=== PATIENT | male | born 1940 | race Caucasian/White ===

== ENCOUNTER → 2019-03-18 | Day surgery (SDC) | payer OTHER ==
[~2019-03-18] VITALS: Ht 182.9 cm; Wt 90.7 kg
[~2019-03-18] MED LIST: BUPIVACAINE HCL 0.5% INJ 30 ML VIAL INJ ONE; CEFAZOLIN SOD 1 GM/NS 50ML 50 ML IV ONE; FENTANYL CITRATE/PF 100MCG/2 ML INJ ONE; HYDROMORPHONE 1MG/1ML INJ IV STA; HYDROMORPHONE 2MG/ML 2 MG/ML ML IV ONE; LIDOCAINE HCL 1% LOCAL INJ 20 ML VIAL ONE; MIDAZOLAM HCL 2 MG/2 ML VIAL ONE; MUPIROCIN 2% OINT 22 GM TUBE ONE; ONDANSETRON HCL INJ 2MG/ML 2ML 2 MG/ML VIAL IV STA; TETANUS/DIPHTHERIA TOX ADULT 0.5 ML SYR IM ONE
--- OUTSIDE RECORDS SUMMARY | 2019-03-18 10:19 | XMS REPORT | Continuity of Care Document ---
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/2018 2.16.840.1.090158.4.391.11.37926 History of colonic polyps Active Problem 10/09/2018 2.16.840.1.308957.4.391.11.23132 Carpal tunnel syndrome of right wrist Active Problem 10/09/2018 2.16.840.1.945068.4.391.11.84201 Benign essential hypertension Active Problem 10/09/2018 2.16.840.1.309329.4.391.11.69510 Other and unspecified hyperlipidemia Active Problem 10/09/2018 2.16.840.1.274933.4.391.11.66786 Encounter for general adult medical examination with abnormal findings Active Diagnosis 10/09/2018 2.16.840.1.088730.4.391.11.64017 Primary osteoarthritis of left knee Active Problem 10/09/2018 2.16.840.1.376645.4.391.11.79002 Encounter for immunization Active Diagnosis 06/26/2018 2.16.840.1.835269.4.391.11.20106 Abrasion, left lower leg, initial encounter Active Diagnosis 06/26/2018 2.16.840.1.886187.4.391.11.53972 Obesity Active Problem 10/09/2018 2.16.840.1.958841.4.391.11.91529 Pure hypercholesterolemia Active Problem 11/22/2015 2.16.840.1.759870.4.391.11.27603 Encounter for screening Active Diagnosis 10/09/2018 2.16.840.1.994885.4.391.11.13339 BMI 27.0-27.9,adult Active Diagnosis 11/15/2015 2.16.840.1.191145.4.391.11.12395 Benign positional vertigo Active Diagnosis 11/15/2015 2.16.840.1.322508.4.391.11.72874 Actinic keratosis Active Diagnosis 07/31/2016 2.16.840.1.432484.4.391.11.58375 Medications Medication Details Route Status Patient Instructions Ordering Provider Order Date Source Shingrix as directed Intramuscular Active 50 MCG Intramuscular as directed Compa 10/02/2018 2.16.840.1.341511.4.391.11.78717 Prevnar 13 as directed Intramuscular Active - Intramuscular as directed Compa 10/02/2018 2.16.840.1.419973.4.391..27047 Prevnar 13 as directed Intramuscular Active - Intramuscular as directed Compa 09/25/2018 2.16.840.1.810746.4.391..61314 Shingrix as directed Intramuscular Active 50 MCG Intramuscular as directed Compa 09/25/2018 2.16.840.1.199918.4.391..57894 Diphtheria-Tetanus Toxoids as directed Intramuscular Active 2- 5 LFU Intramuscular once Compa 06/26/2018 2.16.840.1.405402.4.391..56287 Keflex 1 capsule Orally Active 500 mg Orally every 12 hrs Compa 05/26/2018 2.16.840.1.547412.4.391.11.26397 Pravastatin Sodium 1 tablet Orally Active 20 mg Orally Once a day Compa 11/28/2017 2.16.840.1.495297.4.391..32670 Zostavax as directed Subcutaneous Active 58261 UNT/0.65ML Subcutaneous as directed Compa 07/26/2017 2.16.840.1.750597.4.391..26891 Zocor 1 tablet in the evening Orally Active 20 mg Orally Once a day Compa 11/21/2015 2.16.840.1.496039.4.391.11.42850 Zocor 1 tablet in the evening Orally Active 20 mg Orally Once a day Compa 11/21/2015 2.16.840.1.787272.4.391.11.86789 Meclizine HCl 1 tablet as needed Orally Active 25 MG Orally twice a day (bid) as needed (prn) Compa 11/11/2015 2.16.840.1.883388.4.391.11.28263 Lisinopril-Hydrochlorothiazide 1 tablet by mouth Active 20-25MG by mouth once a day Compa 2.16.840.1.737926.4.391.11.14828 Aspirin 1 tablet Orally Active 81 MG Orally ONE EVERY OTHER DAY Compa 2.16.840.1.021807.4.391.11.53563 Aspirin 1 tablet Orally Active 81 MG Orally ONE EVERY OTHER DAY Compa 2.16840.1.234250.4.391.11.15865 Pravastatin Sodium 1 tablet Orally Active 20MG Orally Once a day Compa 2.16.840.1.031348.4.391.11.84710 Lisinopril-Hydrochlorothiazide 1 tablet by mouth Active 20-25MG by mouth twice a day (bid) Compa 2.16840.1.987268.4.391.11.38526 Lisinopril-Hydrochlorothiazide 1 tablet by mouth Active 20-25MG by mouth twice a day (bid) Compa 2.16840.1.152806.4.391.11. Aspirin 1 tablet Orally Active 81 MG Orally EVERY OTHER DAY Compa 2.16840.1.053723.4.391.11.08262 Allergies, Adverse Reactions, Alerts Substance Category Reaction Severity Reaction type Status Date Reported Comments Source statins Adverse Reaction muscle pain Adverse Reaction Active 07/25/2016 2.16.840.1.881935.4.391.11.16543 Lipitor Adverse Reaction muscle pain Adverse Reaction Active 09/25/2018 2.16.840.1.992666.4.391.11.10403 Immunizations Immunization Date Given Site Status Last Updated Comments Source Tdap 05/26/2018 completed 2.16.840.1.440827.4.391.11.44170 MCR INFLUENZA VACCINE 07/26/2017 completed 2.16.840.1.680879.4.391.11.80246 FLU VACCINE NO PRESERV 3 & > 07/25/2016 completed 2.16.840.1.500419.4.391.11.81021 Pneumococcal Vaccine Polyvalent 07/25/2016 completed 2.16.840.1.488990.4.391.11.41086 Results No Data Provided for This Section Pathology Reports No Data Provided for This Section Diagnostic Reports No Data Provided for This Section Consultation Notes No Data Provided for This Section Discharge Summaries No Data Provided for This Section History and Physicals No Data Provided for This Section Vital Signs Vital Sign Value Date Comments Source Weight 219.0 09/25/2018 2.16.840.1.645958.4.391.11.53432 Height 71.4 09/25/2018 2.16.840.1.789573.4.391.11.25086 Temperature Oral (F) 96.0 F 09/25/2018 2.16.840.1.964430.4.391.11.39564 Heart Rate 54 09/25/2018 2.16.840.1.306403.4.391.11.68642 Diastolic (mm Hg) 65 09/25/2018 2.16.840.1.419174.4.391.11.48141 Systolic (mm Hg) 140 09/25/2018 2.16.840.1.716136.4.391.11.76924 Weight 222.4 05/26/2018 2.16.840.1.398035.4.391.11.70050 Height 71.4 05/26/2018 2.16.840.1.098505.4.391.11.56707 Temperature Oral (F) 96.7 F 05/26/2018 2.16.840.1.404734.4.391.11.59325 Heart Rate 53 05/26/2018 2.16.840.1.824447.4.391.11.84852 Diastolic (mm Hg) 68 05/26/2018 2.16.840.1.213890.4.391.11.81663 Systolic (mm Hg) 149 05/26/2018 2.16.840.1.720271.4.391.11.71119 Weight 221.4 11/21/2017 2.16.840.1.517594.4.391.11.71235 Height 71.4 11/21/2017 2.16.840.1.743441.4.391.11.65024 Temperature Oral (F) 97.6 F 11/21/2017 2.16.840.1.212866.4.391.11.15291 Heart Rate 57 11/21/2017 2.16.840.1.192163.4.391.11.87736 Diastolic (mm Hg) 68 11/21/2017 2.16.840.1.798384.4.391.11.62532 Systolic (mm Hg) 141 11/21/2017 2.16.840.1.906448.4.391.11.38885 Weight 217.6 07/26/2017 2.16.840.1.244249.4.391.11.33989 Height 71.4 07/26/2017 2.16.840.1.975076.4.391.11.39704 Temperature Oral (F) 98.7 F 07/26/2017 2.16.840.1.881027.4.391.11.03098 Heart Rate 57 07/26/2017 2.16.840.1.793014.4.391.11.21491 Diastolic (mm Hg) 69 07/26/2017 2.16.840.1.407999.4.391.11.59603 Systolic (mm Hg) 136 07/26/2017 2.16.840.1.770910.4.391.11.36794 Weight 217 03/25/2017 2.16.840.1.250001.4.391.11.76135 Height 71.4 03/25/2017 2.16.840.1.889044.4.391.11.68096 Temperature Oral (F) 98.9 F 03/25/2017 2.16.840.1.446286.4.391.11.40419 Heart Rate 67 03/25/2017 2.16.840.1.782229.4.391.11.08117 Diastolic (mm Hg) 69 03/25/2017 2.16.840.1.510518.4.391.11.82782 Systolic (mm Hg) 147 03/25/2017 2.16.840.1.281261.4.391.11.18185 Weight 214.6 11/22/2016 2.16.840.1.353259.4.391.11.60174 Height 71.4 11/22/2016 2.16.840.1.737936.4.391.11.72439 Temperature Oral (F) 98.3 F 11/22/2016 2.16.840.1.672666.4.391.11.65568 Heart Rate 60 11/22/2016 2.16.840.1.764836.4.391.11.27390 Diastolic (mm Hg) 72 11/22/2016 2.16.840.1.027435.4.391.11.25325 Systolic (mm Hg) 140 11/22/2016 2.16.840.1.704534.4.391.11.25522 Weight 211.0 07/25/2016 2.16.840.1.063622.4.391.11.80270 Height 71.4 07/25/2016 2.16.840.1.877392.4.391.11.50088 Temperature Oral (F) 98.3 F 07/25/2016 2.16.840.1.037178.4.391.11.12842 Heart Rate 58 07/25/2016 2.16.840.1.820946.4.391.11.44860 Diastolic (mm Hg) 80 07/25/2016 2.16.840.1.190172.4.391.11.54698 Systolic (mm Hg) 161 07/25/2016 2.16.840.1.847483.4.391.11.66773 Weight 200 11/11/2015 2.16.840.1.988745.4.391.11.58780 Height 71.4 11/11/2015 2.16.840.1.788259.4.391.11.87690 Temperature Oral (F) 98.6 F 11/11/2015 2.16.840.1.486382.4.391.11.72467 Heart Rate 60 11/11/2015 2.16.840.1.757523.4.391.11.81342 Diastolic (mm Hg) 69 11/11/2015 2.16.840.1.107962.4.391.11.25590 Systolic (mm Hg) 143 11/11/2015 2.16.840.1.751059.4.391.11.42296 Encounters Location Location Details Encounter Type Encounter Number Reason For Visit Attending Provider ADM Date DC Date Status Source [facility] annual physical/vertiog [id number] 11/11/2015 11/11/2015 2.16.840.1.341420.4.391.11.62378 [facility] annual physical/vertiog [id number] 11/11/2015 11/11/2015 2.16.840.1.565400.4.391.11.60583 [facility] annual physical/vertiog [id number] 11/11/2015 11/11/2015 2.16.840.1.263300.4.391.11.28360 [facility] Unknown [id number] 11/21/2015 11/21/2015 2.16.840.1.000162.4.391.11.29797 [facility] Unknown [id number] 11/21/2015 11/21/2015 2.16.840.1.625047.4.391.11.19759 [facility] REFERRAL TO DERMATOLOGY [id number] 07/25/2016 07/25/2016.16.840.1.089068.4.391.11.06975 Procedures No Data Provided for This Section Assessment and Plan No Data Provided for This Section Plan of Care No Data Provided for This Section Social History Social History Date Source Social History ElementQualifiersDate Reported Do you take Aspirin, or a blood thinner . Yes I do take aspirin/ or a blood thinner Jul 25, 2016 Tobacco Use: . Are you a: former smoker, What year did you quit? 1980 Jul 25, 2016 Use of recreational / street drugs? . Answer: No Jul 25, 2016 Marital Status: . Jul 25, 2016 Caffeine intake? . Status: Yes, What type: Coffee, 1 - 2 cup(s) a day Jul 25, 2016 Do you exercise? . Answer: Yes Jul 25, 2016 Do you drink alcohol? . Status: Yes, Type: Wine, How Often? Socially, Quantity: 1 Jul 25, 2016 Travel outside [place]: . no Jul 25, 2016 Occupation: . RETIRED. Jul 25, 2016 07/25/2016 2.16.840.1.801028.4.391.11.17161 Family History No Data Provided for This Section Advance Directives No Data Provided for This Section Functional Status No Data Provided for This Section
--- OUTSIDE RECORDS SUMMARY | 2019-03-18 10:20 | XMS REPORT ---
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 Assessment History of colonic polyps Z86.010 Active Assessment Other and unspecified hyperlipidemia E78.5 Active Assessment Carpal tunnel syndrome of right wrist G56.01 Active Problem Carpal tunnel syndrome of right wrist G56.01 Active Problem Benign essential hypertension I10 Active Problem Other and unspecified hyperlipidemia E78.5 Active Problem Personal history of tobacco use, presenting hazards to health Z87.891 Active Assessment Benign essential hypertension I10 Active Problem 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 Problem History of colonic polyps Z86.010 Active Medications Medication Code System Code Instructions Start Date End Date Status Dosage Aspirin [facility] [address]-24 81 MG Orally ONE EVERY OTHER DAY Active 1 tablet Lisinopril-Hydrochlorothiazide [facility] 22406355508 20-25MG by mouth twice a day (bid) Active 1 tablet Zocor [facility] [address]-56 20 mg Orally Once a day November 21, 2015 Active 1 tablet in the evening Vital Signs Date/Time: March 25, 2017 BMI 29.92 Index Weight 217 lbs Height 71.4 in Temperature 98.9 F Cardiac Monitoring Heart Rate 67 /min Blood Pressure Diastolic 69 mm Hg Blood Pressure Systolic 147 mm Hg Results No Known Results Summary Purpose [employer] Submission
--- OUTSIDE RECORDS SUMMARY | 2019-03-18 10:20 | XMS REPORT ---
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 Assessment Encounter for general adult medical examination with abnormal findings Z00.01 Active Assessment Benign essential hypertension I10 Active Problem Other and unspecified hyperlipidemia E78.5 Active Problem Carpal tunnel syndrome of right wrist G56.01 Active Problem Primary osteoarthritis of left knee M17.12 Active Problem History of colonic polyps Z86.010 Active Problem Personal history of tobacco use, presenting hazards to health Z87.891 Active Problem Benign essential hypertension I10 Active Problem 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 Assessment Other and unspecified hyperlipidemia E78.5 Active Assessment Carpal tunnel syndrome of right wrist G56.01 Active Assessment Personal history of tobacco use, presenting hazards to health Z87.891 Active Assessment Primary osteoarthritis of left knee M17.12 Active Assessment History of colonic polyps Z86.010 Active Medications Medication Code System Code Instructions Start Date End Date Status Dosage Zocor [facility] 16281259731 20 mg Orally Once a day November 21, 2015 Active 1 tablet in the evening Aspirin [facility] 87054296551 81 MG Orally ONE EVERY OTHER DAY Active 1 tablet Lisinopril-Hydrochlorothiazide [facility] 72647816555 20-25MG by mouth twice a day (bid) Active 1 tablet Vital Signs Date/Time: November 21, 2017 BMI 30.53 Index Weight 221.4 lbs Height 71.4 in Temperature 97.6 F Cardiac Monitoring Heart Rate 57 /min Blood Pressure Diastolic 68 mm Hg Blood Pressure Systolic 141 mm Hg Results Name Result Date Reference Range Unit Abnormality Flag VITAMIN D, 25-HYDROXY, LC/MS/MS ----VITAMIN D,25-OH,TOTAL,IA 38 20171121 30-100 ng/mL N COMPREHENSIVE METABOLIC PANEL ----GLOBULIN 2.2 57877654 1.9-3.7 g/dL (calc) N ----eGFR 100 20171121 > OR=60 mL/min/1.73m2 N ----eGFR NON-AFR. UZBEK 87 20171121 > OR=60 mL/min/1.73m2 N ----ALBUMIN 4.6 32109614 3.6-5.1 g/dL N ----SODIUM 140 76202951 135-146 mmol/L N ----PROTEIN, TOTAL 6.8 43711687 6.1-8.1 g/dL N ----BUN/CREATININE RATIO NOT APPLICABLE 20171121 6-22 (calc) ----CALCIUM 9.5 21424979 8.6-10.3 mg/dL N ----AST 13 20171121 10-35 U/L N ----GLUCOSE 115 20171121 65-99 mg/dL H ----ALKALINE PHOSPHATASE 48 20171121 40-115 U/L N ----BILIRUBIN, TOTAL 0.6 20171121 0.2-1.2 mg/dL N ----CREATININE 0.79 60037162 0.70-1.18 mg/dL N ----ALBUMIN/GLOBULIN RATIO 2.1 06430136 1.0-2.5 (calc) N ----UREA NITROGEN (BUN) 14 20171121 7-25 mg/dL N ----CARBON DIOXIDE 28 20171121 20-31 mmol/L N ----ALT 11 05486666 9-46 U/L N ----POTASSIUM 4.5 98845732 3.5-5.3 mmol/L N ----CHLORIDE 104 53770401 98-110 mmol/L N LIPID PANEL ----NON HDL CHOLESTEROL 183 83034568 <130 mg/dL (calc) H ----CHOL/HDLC RATIO 4.2 81034392 <5.0 (calc) N ----CHOLESTEROL, TOTAL 240 81807840 <200 mg/dL H ----HDL CHOLESTEROL 57 46542418 >40 mg/dL N ----TRIGLYCERIDES 87 03665278 <150 mg/dL N ----LDL-CHOLESTEROL 164 23101883 mg/dL (calc) H HEMOGLOBIN A1c ----HEMOGLOBIN A1c 5.5 32616766 <5.7 % of total Hgb N CBC (INCLUDES DIFF/PLT) ----MCH 30.2 57104475 27.0-33.0 pg N ----MCV 89.4 78984318 80.0-100.0 fL N ----BASOPHILS 0.8 24977710 % N ----HEMATOCRIT 44.7 65869466 38.5-50.0 % N ----HEMOGLOBIN 15.1 45657867 13.2-17.1 g/dL N ----PLATELET COUNT 193 28591292 140-400 Thousand/uL N ----RDW 12.1 79026269 11.0-15.0 % N ----MCHC 33.8 65729846 32.0-36.0 g/dL N ----ABSOLUTE LYMPHOCYTES 1232 55044215 850-3900 cells/uL N ----ABSOLUTE MONOCYTES 629 38601249 200-950 cells/uL N ----ABSOLUTE EOSINOPHILS 109 67028332 15-500 cells/uL N ----ABSOLUTE BASOPHILS 42 82547591 0-200 cells/uL N ----RED BLOOD CELL COUNT 5.00 00291355 4.20-5.80 Million/uL N ----WHITE BLOOD CELL COUNT 5.2 91697615 3.8-10.8 Thousand/uL N ----MPV 10.5 09150055 7.5-12.5 fL N ----ABSOLUTE NEUTROPHILS 3188 94912580 1677-5438 cells/uL N ----MONOCYTES 12.1 34404765 % N ----EOSINOPHILS 2.1 40549582 % N ----NEUTROPHILS 61.3 49523564 % N ----LYMPHOCYTES 23.7 90943855 % N VITAMIN B12/FOLATE, SERUM PANEL ----VITAMIN B12 315 87911715 200-1100 pg/mL N ----FOLATE, SERUM 18.6 20075917 ng/mL N PSA, TOTAL ----PSA, TOTAL 0.6 17249487 < OR=4.0 ng/mL N TSH ----TSH 0.86 24615754 0.40-4.50 mIU/L N Summary Purpose [employer] Submission
--- OUTSIDE RECORDS SUMMARY | 2019-03-18 10:20 | XMS REPORT ---
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 Assessment History of colonic polyps Z86.010 Active Problem Carpal tunnel syndrome of right wrist G56.01 Active Problem Benign essential hypertension I10 Active Problem Other and unspecified hyperlipidemia E78.5 Active Problem Personal history of tobacco use, presenting hazards to health Z87.891 Active Assessment Benign essential hypertension I10 Active Problem 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 Problem History of colonic polyps Z86.010 Active Assessment Encounter for general adult medical examination with abnormal findings Z00.01 Active Assessment Other and unspecified hyperlipidemia E78.5 Active Assessment Carpal tunnel syndrome of right wrist G56.01 Active Medications Medication Code System Code Instructions Start Date End Date Status Dosage Zocor [facility] [address]-87 20 mg Orally Once a day November 21, 2015 Active 1 tablet in the evening Lisinopril-Hydrochlorothiazide [facility] [address]-57 20-25MG by mouth once a day Active 1 tablet Aspirin [facility] [address]-77 81 MG Orally ONE EVERY OTHER DAY Active 1 tablet Vital Signs Date/Time: November 22, 2016 BMI 29.59 Index Weight 214.6 lbs Height 71.4 in Temperature 98.3 F Cardiac Monitoring Heart Rate 60 /min Blood Pressure Diastolic 72 mm Hg Blood Pressure Systolic 140 mm Hg Results No Known Results Summary Purpose [employer] Submission
--- OUTSIDE RECORDS SUMMARY | 2019-03-18 10:20 | XMS REPORT ---
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 68818527712 20631 UNT/0.65ML Subcutaneous as directed Jul 26, 2017 Jul 27, 2017 Active as directed Zocor [facility] 97881682183 20 mg Orally Once a day November 21, 2015 Active 1 tablet in the evening Lisinopril-Hydrochlorothiazide [facility] 15734977780 20-25MG by mouth twice a day (bid) Active 1 tablet [address] [facility] 12499693949 81 MG Orally ONE EVERY OTHER DAY Active 1 tablet Vital Signs Date/Time: Jul 26, 2017 BMI 30.01 Index Weight 217.6 lbs Height 71.4 in Temperature 98.7 F Cardiac Monitoring Heart Rate 57 /min Blood Pressure Diastolic 69 mm Hg Blood Pressure Systolic 136 mm Hg Results No Known Results Immunizations Vaccine Administration Date MCR INFLUENZA VACCINE Jul 26, 2017 Summary Purpose [employer] Submission
--- OUTSIDE RECORDS SUMMARY | 2019-03-18 10:21 | XMS REPORT ---
Author Author German Chatman Organization [employer] Address Unknown Phone Unavailable Care Team Providers Care Sausage Cooker Name Role Phone German Chatman CP Unavailable Encounters Encounter Location Date annual physical/vertiog [facility] November 11, 2015 Unknown [facility] November 21, 2015 Problems Problem Type Condition ICD-9 Code Onset Dates Condition Status Problem Pure hypercholesterolemia E78.0 Active Problem Benign essential hypertension I10 Active Problem Carpal tunnel syndrome of right wrist G56.01 Active Problem Personal history of tobacco use, presenting hazards to health Z87.891 Active Problem 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 Are you a: former smoker, What year did you quit? 1980 November 11, 2015 Use of recreational / street drugs? . Answer: No November 11, 2015 Marital Status: . November 11, 2015 Caffeine intake? . Status: Yes, What type: Coffee, 1 - 2 cup(s) a day November 11, 2015 Do you exercise? . Answer: Yes November 11, 2015 Do you drink alcohol? . Status: Yes, Type: Wine, How Often? Socially, Quantity: 1 November 11, 2015 Travel outside [place]: . no November 11, 2015 Occupation: . RETIRED. November 11, 2015 Summary Purpose [employer] Submission
--- OUTSIDE RECORDS SUMMARY | 2019-03-18 10:21 | XMS REPORT ---
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 Problem Pure hypercholesterolemia E78.0 Active Problem Benign essential hypertension I10 Active Problem Carpal tunnel syndrome of right wrist G56.01 Active Problem Personal history of tobacco use, presenting hazards to health Z87.891 Active Assessment Encounter for general adult medical examination with abnormal findings Z00.01 Active Problem 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 Problem History of colonic polyps Z86.010 Active Assessment BMI 27.0-27.9,adult Z68.27 Active Assessment Benign positional vertigo H81.10 Active Assessment Pure hypercholesterolemia E78.0 Active Assessment Carpal tunnel syndrome of right wrist G56.01 Active Assessment Personal history of tobacco use, presenting hazards to health Z87.891 Active Medications Medication Code System Code Instructions Start Date End Date Status Dosage [facility] [address]-40 81 MG Orally EVERY OTHER DAY Active 1 tablet Lisinopril-Hydrochlorothiazide [facility] [address]-08 20-25MG by mouth once a day Active 1 tablet Meclizine HCl [facility] [address]-38 25 MG Orally twice a day (bid) as needed (prn) November 11, 2015 Active 1 tablet as needed Social History Social History Element Qualifiers Date [...] 2015 Occupation: . RETIRED. November 11, 2015 Vital Signs Date/Time: November 11, 2015 Weight 200 lbs Height 71.4 in Temperature 98.6 F Cardiac Monitoring Heart Rate 60 /min Blood Pressure Diastolic 69 mm Hg Blood Pressure Systolic 143 mm Hg Summary Purpose [employer]Works Submission
--- OUTSIDE RECORDS SUMMARY | 2019-03-18 10:21 | XMS REPORT ---
Author Author German Chatman [facility] eClinicalWorks Address Unknown Phone Unavailable Care Team Providers Care Geothermal Operations Engineer Name Role Phone German Chatman CP Unavailable Allergies, Adverse Reactions, Alerts Substance Reaction Event Type statins muscle pain Non Drug Allergy Encounters Encounter Location Date annual physical/vertiog [facility] November 11, 2015 Unknown [facility] November 21, 2015 REFERRAL TO DERMATOLOGY [facility] Jul 25, 2016 Problems Problem Type Condition ICD-9 Code Onset Dates Condition Status Assessment Other and unspecified hyperlipidemia E78.5 Active Assessment Benign essential hypertension I10 Active Assessment Encounter for immunization Z23 Active Problem Carpal tunnel syndrome of right wrist G56.01 Active Problem Benign essential hypertension I10 Active Problem Other and unspecified hyperlipidemia E78.5 Active Problem Personal history of tobacco use, presenting hazards to health Z87.891 Active Assessment Actinic keratosis L57.0 Active Problem 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 Problem History of colonic polyps Z86.010 Active Medications Medication Code System Code Instructions Start Date End Date Status Dosage Meclizine HCl [facility] [address]-60 25 MG Orally twice a day (bid) as needed (prn) November 11, 2015 Active 1 tablet as needed [facility] [address]-28 81 MG Orally ONE EVERY OTHER DAY Active 1 tablet Lisinopril-Hydrochlorothiazide [facility] [address]-00 20-25MG by mouth once a day Active 1 tablet Zocor [facility] [address]-14 20 mg Orally Once a day November 21, 2015 Active 1 tablet in the evening Social History Social History Element Qualifiers Date Reported Do you take Aspirin, or a [...] 2016 Occupation: . RETIRED. Jul 25, 2016 Vital Signs Date/Time: Jul 25, 2016 Weight 211.0 lbs Height 71.4 in Temperature 98.3 F Cardiac Monitoring Heart Rate 58 /min Blood Pressure Diastolic 80 mm Hg Blood Pressure Systolic 161 mm Hg Immunizations Vaccine Administration Date FLU VACCINE NO PRESERV 3 & > Jul 25, 2016 Pneumococcal Vaccine Polyvalent Jul 25, 2016 Summary Purpose eClinicalWorks Submission
--- OUTSIDE RECORDS SUMMARY | 2019-03-18 10:21 | XMS REPORT ---
Author Author German Chatman Organization eClinicalWorks Address Unknown Phone Unavailable Care Team Providers Care Human Resources Services Specialist Name Role Phone German Chatman CP Unavailable Allergies No Known Allergies Problems Problem Type Condition Code Onset Dates Condition Status Problem Other and unspecified hyperlipidemia E78.5 Active Problem Carpal tunnel syndrome of right wrist G56.01 Active Problem Primary osteoarthritis of left knee M17.12 Active Problem History of colonic polyps Z86.010 Active Problem Personal history of tobacco use, presenting hazards to health Z87.891 Active Problem Benign essential hypertension I10 Active Problem 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
--- OUTSIDE RECORDS SUMMARY | 2019-03-18 10:21 | XMS REPORT ---
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 05023866349 81 MG Orally ONE EVERY OTHER DAY Active 1 tablet Keflex [facility] 51052922037 500 mg Orally every 12 hrs May 26, 2018 Jun 05, 2018 Active 1 capsule Pravastatin Sodium ND 19740289388 20MG Orally Once a day Active 1 tablet Lisinopril-Hydrochlorothiazide [facility] 78397078776 20-25MG by mouth twice a day (bid) Active 1 tablet Zocor [facility] 01570498507 20 mg Orally Once a day November 21, 2015 Active 1 tablet in the evening Vital Signs Date/Time: May 26, 2018 BMI 30.67 Index Weight 222.4 lbs Height 71.4 in Temperature 96.7 F Cardiac Monitoring Heart Rate 53 /min Blood Pressure Diastolic 68 mm Hg Blood Pressure Systolic 149 mm Hg Results No Known Results Immunizations Vaccine Administration Date Tdap May 26, 2018 Summary Purpose eClinicalWorks Submission
--- OUTSIDE RECORDS SUMMARY | 2019-03-18 10:21 | XMS REPORT ---
Author Author German Chatman Organization eClinicalWorks Address Unknown Phone Unavailable Care Team Providers Care Pork Cutlet Maker Name Role Phone German Chatman CP Unavailable Allergies, Adverse Reactions, Alerts Substance Reaction Event Type Lipitor muscle pain Drug Allergy Problems Problem Type Condition Code Onset Dates Condition Status Assessment Encounter for general adult medical examination with abnormal findings Z00.01 Active Problem Personal history of tobacco use, presenting hazards to health Z87.891 Active Problem Primary osteoarthritis of left knee M17.12 Active Problem Other and unspecified hyperlipidemia E78.5 Active Problem Obesity (BMI 30.0-34.9) E66.9 Active Problem 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 Problem History of colonic polyps Z86.010 Active Problem Carpal tunnel syndrome of right wrist G56.01 Active Problem Benign essential hypertension I10 Active Assessment Encounter for screening Z13.9 Active Assessment Primary osteoarthritis of left knee M17.12 Active Assessment Obesity (BMI 30.0-34.9) E66.9 Active Assessment Personal history of tobacco use, presenting hazards to health Z87.891 Active Assessment History of colonic polyps Z86.010 Active Assessment Other and unspecified hyperlipidemia E78.5 Active Assessment 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 Assessment Carpal tunnel syndrome of right wrist G56.01 Active Assessment Benign essential hypertension I10 Active Medications Medication Code System Code Instructions Start Date End Date Status Dosage Zocor [facility] 13779934134 20 mg Orally Once a day November 21, 2015 Active 1 tablet in the evening Pravastatin Sodium [facility] 05081285558 20MG Orally Once a day Active 1 tablet Lisinopril-Hydrochlorothiazide [facility] 15364051517 20-25MG by mouth twice a day (bid) Active 1 tablet Aspirin [facility] 80369413241 81 MG Orally ONE EVERY OTHER DAY Active 1 tablet Prevnar 13 [facility] 93498862163 - Intramuscular as directed Sep 25, 2018 Sep 26, 2018 Active as directed Shingrix [facility] 28240169718 50 MCG Intramuscular as directed Sep 25, 2018 Sep 27, 2018 Active as directed Vital Signs Date/Time: Sep 25, 2018 BMI 30.20 Index Weight 219.0 lbs Height 71.4 in Temperature 96.0 F Cardiac Monitoring Heart Rate 54 /min Blood Pressure Diastolic 65 mm Hg Blood Pressure Systolic 140 mm Hg Results Name Result Date Reference Range Unit Abnormality Flag VITAMIN D, 25-HYDROXY, LC/MS/MS ----VITAMIN D,25-OH,TOTAL,IA 43 20180926 30-100 ng/mL N COMPREHENSIVE METABOLIC PANEL ----GLOBULIN 2.3 20180926 1.9-3.7 g/dL (calc) N ----eGFR 94 20180926 > OR=60 mL/min/1.73m2 N ----eGFR NON-AFR. [place] 82 20180926 > OR=60 mL/min/1.73m2 N ----ALBUMIN 4.3 20180926 3.6-5.1 g/dL N ----SODIUM 139 20180926 135-146 mmol/L N ----PROTEIN, TOTAL 6.6 20180926 6.1-8.1 g/dL N ----BUN/CREATININE RATIO NOT APPLICABLE 20180926 6-22 (calc) ----CALCIUM 9.3 20180926 8.6-10.3 mg/dL N ----AST 13 20180926 10-35 U/L N ----GLUCOSE 98 20180926 65-99 mg/dL N ----ALKALINE PHOSPHATASE 52 20180926 40-115 U/L N ----BILIRUBIN, TOTAL 0.6 20180926 0.2-1.2 mg/dL N ----CREATININE 0.90 20180926 0.70-1.18 mg/dL N ----ALBUMIN/GLOBULIN RATIO 1.9 20180926 1.0-2.5 (calc) N ----UREA NITROGEN (BUN) 17 20180926 7-25 mg/dL N ----CARBON DIOXIDE 29 20180926 20-32 mmol/L N ----ALT 14 20180926 9-46 U/L N ----POTASSIUM 4.8 10448801 3.5-5.3 mmol/L N ----CHLORIDE 101 58202635 98-110 mmol/L N LIPID PANEL ----NON HDL CHOLESTEROL 128 67050221 <130 mg/dL (calc) N ----CHOL/HDLC RATIO 3.4 51229211 <5.0 (calc) N ----CHOLESTEROL, TOTAL 182 91683780 <200 mg/dL N ----HDL CHOLESTEROL 54 77597669 >40 mg/dL N ----TRIGLYCERIDES 66 66501540 <150 mg/dL N ----LDL-CHOLESTEROL 113 77159624 mg/dL (calc) H HEMOGLOBIN A1c ----HEMOGLOBIN A1c 5.7 44423362 <5.7 % of total Hgb H CBC (INCLUDES DIFF/PLT) ----MCH 31.1 67968968 27.0-33.0 pg N ----MCV 90.7 05865153 80.0-100.0 fL N ----BASOPHILS 0.9 71526569 % N ----HEMATOCRIT 43.7 32609063 38.5-50.0 % N ----HEMOGLOBIN 15.0 60302851 13.2-17.1 g/dL N ----PLATELET COUNT 219 35190194 140-400 Thousand/uL N ----RDW 11.9 48575357 11.0-15.0 % N ----MCHC 34.3 16942794 32.0-36.0 g/dL N ----ABSOLUTE LYMPHOCYTES 1511 51114384 850-3900 cells/uL N ----ABSOLUTE MONOCYTES 668 37425580 200-950 cells/uL N ----ABSOLUTE EOSINOPHILS 122 19886088 15-500 cells/uL N ----ABSOLUTE BASOPHILS 48 93099781 0-200 cells/uL N ----RED BLOOD CELL COUNT 4.82 74869992 4.20-5.80 Million/uL N ----WHITE BLOOD CELL COUNT 5.3 02772336 3.8-10.8 Thousand/uL N ----MPV 10.5 68463014 7.5-12.5 fL N ----ABSOLUTE NEUTROPHILS 2952 56941870 2501-3621 cells/uL N ----MONOCYTES 12.6 58756718 % N ----EOSINOPHILS 2.3 15740160 % N ----NEUTROPHILS 55.7 02671096 % N ----LYMPHOCYTES 28.5 76576161 % N VITAMIN B12/FOLATE, SERUM PANEL ----VITAMIN B12 485 20180926 200-1100 pg/mL N ----FOLATE, SERUM 15.0 20180926 ng/mL N PSA, TOTAL ----PSA, TOTAL 0.7 20180926 < OR=4.0 ng/mL N TSH ----TSH 1.01 20180926 0.40-4.50 mIU/L N Summary Purpose eClinicalWorks Submission
--- OUTSIDE RECORDS SUMMARY | 2019-03-18 10:21 | XMS REPORT ---
Author Author German Chatman Organization eClinicalWorks Address Unknown Phone Unavailable Care Team Providers Care Watch Repair Person Name Role Phone German Chatman CP Unavailable [...] Instructions Start Date End Date Status Dosage Pravastatin Sodium [facility] 59723922338 20 mg Orally Once a day November 28, 2017 Active 1 tablet Results No Known Results Summary Purpose eClinicalWorks Submission
--- OUTSIDE RECORDS SUMMARY | 2019-03-18 10:21 | XMS REPORT ---
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
[2019-03-18 10:50] LABS: BASOPHILS % 0.5 % (0.0-1.0); EOSINOPHILS # (AUTO) 0.1 (0.0-0.4); EOSINOPHILS % 1.7 % (0.0-6.0); HEMATOCRIT 44.3 % (38.2-49.6); HEMOGLOBIN 14.8 g/dL (14.0-18.0); LYMPHOCYTES # (AUTO) 2.5 (1.0-3.2); LYMPHOCYTES % 33.6 % (18.0-39.1); MEAN CORPUSCULAR HEMOGLOBIN 31.2 pg (28-32); MEAN CORPUSCULAR HGB CONC 33.4 g/dL (31-35); MEAN CORPUSCULAR VOLUME 93.5 fL (81-99); MONOCYTES % 13.2 % (4.4-11.3); NEUTROPHILS # (AUTO) 3.8 (2.1-6.9); NEUTROPHILS % 50.6 % (38.7-80.0); PLATELET COUNT 237 x10e3/uL (140-360); RED BLOOD COUNT 4.74 x10e6/uL (4.3-5.7)
[2019-03-18 11:00] LABS: INR 0.93
[2019-03-18 11:01] LABS: PARTIAL THROMBOPLASTIN TIME 24.8 seconds (23.8-35.5)
[2019-03-18 11:08] LABS: ANION GAP 13.4 mmol/L (8-16); BLOOD UREA NITROGEN 17 mg/dL (7-26); BUN/CREATININE RATIO 21 (6-25); CALCIUM 9.8 mg/dL (8.4-10.2); CARBON DIOXIDE 31 mmol/L (22-29); CHLORIDE 100 mmol/L (98-107); CREATINE KINASE 86 IU/L (30-200); EST GLOMERULAR FILTRATION RATE > 60 ML/MIN (60-); GLUCOSE 120 mg/dL (74-118); POTASSIUM 4.4 mmol/L (3.5-5.1); SODIUM 140 mmol/L (136-145)
--- NOTE | 2019-03-18 12:04 | Diagnostic Imaging Report ---
Exam: Left Hand Series. History: Trauma Comparison: None Findings: 3 views of the left hand demonstrate traumatic apical dictation of the distal tip of the fourth digit. Adjacent to the hand, there is gauze material containing the amputated soft tissue and the distal tuft of the fourth distal phalanx. No other fracture or dislocation. The remaining soft tissues appear unremarkable. Mild scattered degenerative changes. 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 Signed by: Shana Calderón MD on 03/18/2019 12:01 PM
[2019-03-18 15:30] VITALS: BP 131/64
--- NOTE | 2019-03-19 11:30 | Operative Report ---
DATE OF PROCEDURE: 03/18/2019 SURGEON: Steven Morris MD PREOPERATIVE DIAGNOSES: 1. 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 2. Open wound of left ring finger distal phalanx. POSTOPERATIVE DIAGNOSES: 1. 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 2. Open wound of left ring finger distal phalanx. PROCEDURES: 1. Full-thickness skin grafting, autograft of left long finger. 2. Complex repair of left ring finger. ANESTHESIA: MAC/local. 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 He accidentally placed his hands underneath and the blade caused the injuries to the left long and ring fingers. The risks, benefits, and alternatives of treatment were discussed with the patient. He was unable to sign consent because he received IV Dilaudid prior to the signing of the consent and the case was deemed a limb-threatening emergency, so the case proceeded. PROCEDURE IN DETAIL: The patient was marked preoperatively in the holding area. He was brought to the operating theater and after the induction of adequate IV sedation, he was prepped and draped in a supine position and a time-out was performed. The procedure was begun by excising all of the bony fragments of the distal phalanx, which were comminuted in the left long finger. The tourniquet was then placed around the base of the left long finger for vascular control. At this point, the amputated portion of the distal phalanx was examined. Bony remnants that were attached were sharply excised and the amputated part was defatted down to the deep dermal level. The edges were sharply trimmed of all partially ischemic tissue. At this point, the volar tissue of the left long finger was replanted using 5-0 chromic sutures in an interrupted fashion. At the level of the nail bed, the [place] elevator was used to elevate the nail plate off the sterile matrix and interrupted chromic sutures were used here as well. At the completion of the procedure, the tourniquet was removed, the finger pinked up nicely, a sterile bulky conforming bandage was applied utilizing Bactroban ointment, Xeroform gauze, and sterile dressing and then a foam aluminum splint was placed over the end of the finger and held in place with 1 inch Coban for protection. Attention was then turned to the left ring finger. A tourniquet was placed around the base of the left ring finger and the devitalized skin and subcutaneous tissue was then sharply excised. The wound was then closed using 5-0 chromic in an interrupted fashion. The tourniquet was removed, the finger pinked up nicely and Bactroban ointment, Xeroform gauze, and a sterile dressing were applied. A digital block of the long and ring fingers was performed utilizing a 50:50 mixture of 1% Xylocaine plain and 0.5% plain Marcaine, a total of 6 to 6.5 mL was used per finger around the base for postop analgesia. The patient was then returned to recovery room in satisfactory condition and discharged with a postoperative instruction sheet as well as a followup appointment. MD JAZLYN Morocho/MARCIA /[id number]
--- NOTE | 2019-03-19 17:53 | Progress Note ---
DATE: 03/18/2019 SUBJECTIVE: Champ Likn is a 79-year-old right hand dominant male, who sustained injury to the left long and ring finger with amputation of the distal aspect of the left long finger. While the patient was in the emergency room, he received IV Dilaudid prior to obtaining the consent. I have declared the case a limb threatening emergency because the amputated part needs to be replanted and this cannot wait for family member or somebody else to come in and sign for him. For that reason, we will proceed with the case without the patient giving his consent. MD JAZLYN Morocho/MARCIA /[id number]
--- OUTSIDE RECORDS SUMMARY | 2019-03-20 13:52 | XMS REPORT ---
Author Author [facility] Address Unknown Phone Unavailable Care Team Providers Care Offset Press Operator Apprentice Name Role Phone Yamile NEWBY Unavailable Unavailable Problems This patient has no known problems. Allergies, Adverse Reactions, Alerts This patient has no known allergies or adverse reactions. Medications This patient has no known medications. Results Test Description Test Time Test Comments Text Results Atomic Results Result Comments HAND 3+ VIEWS LEFT 2019-03-18 11:57:[address] [address] Patient Name: LEIDY SANTIAGO MR #: [id number] : 1940 Age/Sex: 79/M Req #: [id number] Adm Physician: Ordered by: RICHARD ROMANO PAPER PLATE MACHINE TENDER Report #: [id number] Location: ER Room/Bed: Procedure: [id number] DX/HAND 3+ VIEWS LEFT Exam Date: Exam Time: REPORT STATUS: Signed Exam: Left Hand Series. History: Trauma Comparison: None Findings: 3 views of the left hand demonstrate traumatic apical dictation of the distal tip of the fourth digit. Adjacent to the hand, there is gauze material containing the amputated soft tissue and the distal tuft of the fourth distal phalanx. No other fracture or dislocation. The remaining soft tissues appear unremarkable. Mild scattered degenerative changes. 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 Signed by: Samantha Ornelas MD on 03/18/2019 12:01 PM Dictated By: SAMANTHA ORNELAS MD 1201 Transcribed By: MERNA on 03/18/19 1201 COPY TO: RICHARD ROMANO NP
--- OUTSIDE RECORDS SUMMARY | 2019-03-20 13:52 | XMS REPORT | Continuity of Care Document ---
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840.1.838045.4.391.11.40694 Encounter for immunization Active Diagnosis 06/26/2018 2.16.840.1.120399.4.391.11.52597 Abrasion, left lower leg, initial encounter Active Diagnosis 06/26/2018 2.16.840.1.243186.4.391.11.32897 Obesity Active Problem 10/09/2018 2.16.840.1.635389.4.391.11.60037 Pure hypercholesterolemia Active Problem 11/22/2015 2.16.840.1.691621.4.391.11.62935 Encounter for screening Active Diagnosis 10/09/2018 2.16.840.1.307410.4.391.11.48500 BMI 27.0-27.9,adult Active Diagnosis 11/15/2015 2.16.840.1.842247.4.391.11.10481 Benign positional vertigo Active Diagnosis 11/15/2015 2.16.840.1.519535.4.391.11.04092 Actinic keratosis Active Diagnosis 07/31/2016 2.16.840.1.871433.4.391.11.33371 Medications Medication Details Route Status Patient Instructions Ordering Provider Order Date Source Shingrix as directed Intramuscular Active 50 MCG Intramuscular as directed Compa 10/02/2018 2.16.840.1.066631.4.391.11.96468 Prevnar 13 as directed Intramuscular Active - Intramuscular as directed Compa 10/02/2018 2.16.840.1.633232.4.391..04148 Prevnar 13 as directed Intramuscular Active - Intramuscular as directed Compa 09/25/2018 2.16.840.1.357745.4.391..60015 Shingrix as directed Intramuscular Active 50 MCG Intramuscular as directed Compa 09/25/2018 2.16.840.1.301088.4.391..72518 Diphtheria-Tetanus Toxoids as directed Intramuscular Active 2- 5 LFU Intramuscular once Compa 06/26/2018 2.16.840.1.660122.4.391..33573 Keflex 1 capsule Orally Active 500 mg Orally every 12 hrs Compa 05/26/2018 2.16.840.1.118587.4.391.11.30712 Pravastatin Sodium 1 tablet Orally Active 20 mg Orally Once a day Compa 11/28/2017 2.16.840.1.023208.4.391..74694 Zostavax as directed Subcutaneous Active 55255 UNT/0.65ML Subcutaneous as directed Compa 07/26/2017 2.16.840.1.821246.4.391..24610 Zocor 1 tablet in the evening Orally Active 20 mg Orally Once a day Compa 11/21/2015 2.16.840.1.927420.4.391.11.28708 Zocor 1 tablet in the evening Orally Active 20 mg Orally Once a day Compa 11/21/2015 2.16.840.1.949141.4.391.11.03412 Meclizine HCl 1 tablet as needed Orally Active 25 MG Orally twice a day (bid) as needed (prn) Compa 11/11/2015 2.16.840.1.998529.4.391.11.08825 Lisinopril-Hydrochlorothiazide 1 tablet by mouth Active 20-25MG by mouth once a day Compa 2.16.840.1.424528.4.391.11.72602 Aspirin 1 tablet Orally Active 81 MG Orally ONE EVERY OTHER DAY Compa 2.16.840.1.137121.4.391.11.99587 Aspirin 1 tablet Orally Active 81 MG Orally ONE EVERY OTHER DAY Compa 2.16840.1.847955.4.391.11.99779 Pravastatin Sodium 1 tablet Orally Active 20MG Orally Once a day Compa 2.16.840.1.527902.4.391.11.28600 Lisinopril-Hydrochlorothiazide 1 tablet by mouth Active 20-25MG by mouth twice a day (bid) Compa 2.16840.1.712708.4.391.11.71218 Lisinopril-Hydrochlorothiazide 1 tablet by mouth Active 20-25MG by mouth twice a day (bid) Compa 2.16840.1.417411.4.391.11. Aspirin 1 tablet Orally Active 81 MG Orally EVERY OTHER DAY Compa 2.16840.1.227094.4.391.11.79342 Allergies, Adverse Reactions, Alerts Substance Category Reaction Severity Reaction type Status Date Reported Comments Source statins Adverse Reaction muscle pain Adverse Reaction Active 07/25/2016 2.16.840.1.999970.4.391.11.45040 Lipitor Adverse Reaction muscle pain Adverse Reaction Active 09/25/2018 2.16.840.1.603971.4.391.11.13681 Immunizations Immunization Date Given Site Status Last Updated Comments Source Tdap 05/26/2018 completed 2.16.840.1.005168.4.391.11.68481 MCR INFLUENZA VACCINE 07/26/2017 completed 2.16.840.1.996374.4.391.11.67099 FLU VACCINE NO PRESERV 3 & > 07/25/2016 completed 2.16.840.1.045481.4.391.11.18043 Pneumococcal Vaccine Polyvalent 07/25/2016 completed 2.16.840.1.481388.4.391.11.97742 Results No Data Provided for This Section Pathology Reports No Data Provided for This Section Diagnostic Reports No Data Provided for This Section Consultation Notes No Data Provided for This Section Discharge Summaries No Data Provided for This Section History and Physicals No Data Provided for This Section Vital Signs Vital Sign Value Date Comments Source Weight 219.0 09/25/2018 2.16.840.1.815616.4.391.11.04941 Height 71.4 09/25/2018 2.16.840.1.041084.4.391.11.17712 Temperature Oral (F) 96.0 F 09/25/2018 2.16.840.1.531031.4.391.11.32949 Heart Rate 54 09/25/2018 2.16.840.1.560453.4.391.11.45570 Diastolic (mm Hg) 65 09/25/2018 2.16.840.1.195077.4.391.11.22015 Systolic (mm Hg) 140 09/25/2018 2.16.840.1.532414.4.391.11.90296 Weight 222.4 05/26/2018 2.16.840.1.320043.4.391.11.57198 Height 71.4 05/26/2018 2.16.840.1.033588.4.391.11.88074 Temperature Oral (F) 96.7 F 05/26/2018 2.16.840.1.149832.4.391.11.12438 Heart Rate 53 05/26/2018 2.16.840.1.823302.4.391.11.07405 Diastolic (mm Hg) 68 05/26/2018 2.16.840.1.287467.4.391.11.75888 Systolic (mm Hg) 149 05/26/2018 2.16.840.1.179120.4.391.11.27491 Weight 221.4 11/21/2017 2.16.840.1.431403.4.391.11.30806 Height 71.4 11/21/2017 2.16.840.1.049903.4.391.11.87926 Temperature Oral (F) 97.6 F 11/21/2017 2.16.840.1.462231.4.391.11.95125 Heart Rate 57 11/21/2017 2.16.840.1.831875.4.391.11.17527 Diastolic (mm Hg) 68 11/21/2017 2.16.840.1.193094.4.391.11.46678 Systolic (mm Hg) 141 11/21/2017 2.16.840.1.320236.4.391.11.19379 Weight 217.6 07/26/2017 2.16.840.1.653835.4.391.11.09661 Height 71.4 07/26/2017 2.16.840.1.643637.4.391.11.56078 Temperature Oral (F) 98.7 F 07/26/2017 2.16.840.1.067463.4.391.11.41571 Heart Rate 57 07/26/2017 2.16.840.1.584648.4.391.11.66415 Diastolic (mm Hg) 69 07/26/2017 2.16.840.1.640761.4.391.11.24367 Systolic (mm Hg) 136 07/26/2017 2.16.840.1.691672.4.391.11.97360 Weight 217 03/25/2017 2.16.840.1.299592.4.391.11.77871 Height 71.4 03/25/2017 2.16.840.1.279204.4.391.11.26368 Temperature Oral (F) 98.9 F 03/25/2017 2.16.840.1.102215.4.391.11.77769 Heart Rate 67 03/25/2017 2.16.840.1.313592.4.391.11.69570 Diastolic (mm Hg) 69 03/25/2017 2.16.840.1.757556.4.391.11.60601 Systolic (mm Hg) 147 03/25/2017 2.16.840.1.732086.4.391.11.55229 Weight 214.6 11/22/2016 2.16.840.1.828504.4.391.11.19454 Height 71.4 11/22/2016 2.16.840.1.100067.4.391.11.64575 Temperature Oral (F) 98.3 F 11/22/2016 2.16.840.1.178742.4.391.11.10831 Heart Rate 60 11/22/2016 2.16.840.1.302859.4.391.11.01666 Diastolic (mm Hg) 72 11/22/2016 2.16.840.1.730233.4.391.11.45365 Systolic (mm Hg) 140 11/22/2016 2.16.840.1.962829.4.391.11.02759 Weight 211.0 07/25/2016 2.16.840.1.130493.4.391.11.83806 Height 71.4 07/25/2016 2.16.840.1.661586.4.391.11.54810 Temperature Oral (F) 98.3 F 07/25/2016 2.16.840.1.353555.4.391.11.67926 Heart Rate 58 07/25/2016 2.16.840.1.340617.4.391.11.73298 Diastolic (mm Hg) 80 07/25/2016 2.16.840.1.421435.4.391.11.22633 Systolic (mm Hg) 161 07/25/2016 2.16.840.1.479357.4.391.11.90428 Weight 200 11/11/2015 2.16.840.1.009003.4.391.11.25126 Height 71.4 11/11/2015 2.16.840.1.962510.4.391.11.56026 Temperature Oral (F) 98.6 F 11/11/2015 2.16.840.1.598656.4.391.11.39534 Heart Rate 60 11/11/2015 2.16.840.1.273309.4.391.11.44638 Diastolic (mm Hg) 69 11/11/2015 2.16.840.1.785489.4.391.11.84098 Systolic (mm Hg) 143 11/11/2015 2.16.840.1.084435.4.391.11.36578 Encounters Location Location Details Encounter Type Encounter Number Reason For Visit Attending Provider ADM Date DC Date Status Source [facility] annual physical/vertiog [id number] 11/11/2015 11/11/2015 2.16.840.1.824752.4.391.11.09548 [facility] annual physical/vertiog [id number] 11/11/2015 11/11/2015 2.16.840.1.526230.4.391.11.21064 [facility] annual physical/vertiog [id number] 11/11/2015 11/11/2015 2.16.840.1.276630.4.391.11.91981 [facility] Unknown [id number] 11/21/2015 11/21/2015 2.16.840.1.152935.4.391.11.56372 [facility] Unknown [id number] 11/21/2015 11/21/2015 2.16.840.1.823811.4.391.11.80301 [facility] REFERRAL TO DERMATOLOGY [id number] 07/25/2016 07/25/2016.16.840.1.567437.4.391.11.40626 Procedures No Data Provided for This Section [...] Occupation: . RETIRED. Jul 25, 2016 07/25/2016 2.16.840.1.815874.4.391.11.68280 Family History No Data Provided for This Section Advance Directives No Data Provided for This Section Functional Status No Data Provided for This Section
== END | disposition home or self-care (01) ==
LOC: ER 10:17 → OR 13:21
PROVIDERS: ATTEND Plastic Surgery
DX: S68.123A Partial traumatic metacarpophalangeal amputation of left middle finger, initial encounter (principal); S61.215A Laceration without foreign body of left ring finger without damage to nail, initial encounter; I10 Essential (primary) hypertension; E78.5 Hyperlipidemia, unspecified; W30.89XA Contact with other specified agricultural machinery, initial encounter; Y93.89 Activity, other specified; Y99.8 Other external cause status; Y92.009 Unspecified place in unspecified non-institutional (private) residence as the place of occurrence of the external cause
CPT/HCPCS: 36415; 80048; 82550; 82553; 84484; 85025; 85610; 85730; 90471; 90714; 93005; 99284; J0690; J2001; J2250; J2405; J3010

== ENCOUNTER → 2019-07-09 | Day surgery (SDC) | payer MEDICARE ==
[2019-07-06 10:38] LABS: BASOPHILS % 0.8 % (0.0-1.0); EOSINOPHILS # (AUTO) 0.2 (0.0-0.4); EOSINOPHILS % 3.6 % (0.0-6.0); HEMATOCRIT 41.7 % (38.2-49.6); HEMOGLOBIN 13.5 g/dL (14.0-18.0); LYMPHOCYTES # (AUTO) 1.2 (1.0-3.2); MEAN CORPUSCULAR HEMOGLOBIN 30.5 pg (28-32); MEAN CORPUSCULAR HGB CONC 32.4 g/dL (31-35); MEAN CORPUSCULAR VOLUME 94.3 fL (81-99); MONOCYTES # (AUTO) 0.7 (0.2-0.8); MONOCYTES % 13.8 % (4.4-11.3); NEUTROPHILS % 58.4 % (38.7-80.0); PLATELET COUNT 208 x10e3/uL (140-360); RED BLOOD COUNT 4.42 x10e6/uL (4.3-5.7); RED CELL DISTRIBUTION WIDTH 12.5 % (11.7-14.4)
--- NOTE | 2019-07-06 10:51 | Diagnostic Imaging Report ---
EXAMINATION: CHEST 2 VIEWS INDICATION: Pre-operative COMPARISON: None FINDINGS: LINES/TUBES:None LUNGS:The lungs are mildly hyperinflated. No focal consolidation or pulmonary edema. PLEURA:No pleural effusion or pneumothorax. MEDIASTINUM:The cardiomediastinal silhouette appears normal in size and shape. Atherosclerotic calcifications of the thoracic aorta. BONES/SOFT TISSUES:No acute osseous injury. ABDOMEN:No free air under the diaphragm. IMPRESSION: Mildly hyperinflated lungs. No focal pneumonia or pulmonary edema. Signed by: Shana Calderón MD on 07/06/2019 10:47 AM
[~2019-07-09] MED LIST changes: +DEXAMETHASONE SOD PHOS INJ 4 MG/ML VIAL ONE; +EPHEDRINE SULFATE INJ 50 MG/10 ML SYR ONE; -HYDROMORPHONE 1MG/1ML INJ IV STA; -HYDROMORPHONE 2MG/ML 2 MG/ML ML IV ONE; -LIDOCAINE HCL 1% LOCAL INJ 20 ML VIAL ONE; +LIDOCAINE HCL 2% LOCAL INJ 5 ML SDV VIAL INJ ONE; +LISINOPRIL10 MG PO; -MIDAZOLAM HCL 2 MG/2 ML VIAL ONE; -ONDANSETRON HCL INJ 2MG/ML 2ML 2 MG/ML VIAL IV STA; +ONDANSETRON HCL INJ 2MG/ML 2ML 2 MG/ML VIAL ONE; +PRAVASTATIN SOD40 MG PO; +PROPOFOL IV EMULSION 10 MG/ML 20 ML VIAL ONE; +SEVOFLURANE INHAL SOLN 250 ML PEN BTL ONE; -TETANUS/DIPHTHERIA TOX ADULT 0.5 ML SYR IM ONE
[2019-07-09 09:10] VITALS: BP 147/83
--- NOTE | 2019-07-09 18:44 | Operative Report ---
DATE OF PROCEDURE: 07/09/2019 SURGEON: Steven Morris MD PREOPERATIVE DIAGNOSIS: Left hand carpal tunnel syndrome. POSTOPERATIVE DIAGNOSES: 1. Left hand carpal tunnel syndrome. 2. Flexor tenosynovitis left wrist. PROCEDURE: 1. Left hand open carpal tunnel release. 2. Flexor tenosynovectomy left wrist. ANESTHESIA: General. HISTORY: The patient is a 79-year-old with EMG-proven left hand carpal tunnel syndrome. Risks, benefits and alternatives of treatment were discussed with the patient. The patient is prepared to undergo the procedure as outlined. DESCRIPTION OF PROCEDURE: The patient was brought to the operating theater. After the induction of adequate general inhalation anesthesia, the patient was prepped and draped in the supine position. A time out was performed by the entire operating room team. A 2.5 cm incision was marked out in the intrathenar space. The left upper extremity was exsanguinated, and a tourniquet was inflated to a pressure of 250 mmHg. The incision was made through the skin and subcutaneous tissues and all venous tributaries were controlled with bipolar cautery. The incision was deepened through the palmar fascia until the transverse carpal ligament was identified. The ligament was sharply sectioned, taking care to protect and preserve the median nerve underlying it. After the complete width of the ligament had been transected, the distal volar forearm fascia was divided under direct view. Proliferative flexor tenosynovium was noticed to encompass the median nerve and this was radically excised. After performing this maneuver, the nerve was noted to lie adequately decompressed. The wound was copiously irrigated with bacteriostatic saline, closed with 5-0 nylon in an interrupted horizontal mattress fashion. A Marcaine field block was performed at the operative site. Tourniquet was deflated. All of the fingers pinked up nicely and a sterile bulking conforming bandage was applied to the hand and the wrist. A fiberglass splint was fashioned to maintain the wrist in a modest amount of extension. This was held in place with a loosely wrapped Alfonso wrap. The patient tolerated the procedure well and was brought to the recovery room in satisfactory condition and discharged with a postoperative instruction sheet as well as a followup appointment. Steven Morris MD ER/MODL /[id number]
== END | disposition home or self-care (01) ==
LOC: OR 05:34
PROVIDERS: ATTEND Plastic Surgery
DX: G56.02 Carpal tunnel syndrome, left upper limb (principal); I10 Essential (primary) hypertension; Z01.810 Encounter for preprocedural cardiovascular examination; Z01.812 Encounter for preprocedural laboratory examination; Z01.818 Encounter for other preprocedural examination
CPT/HCPCS: 25115; 36415; 71046; 85025; 93005; J0690; J1100; J2001; J2405; J2704; J3010

== ENCOUNTER 2021-09-24 07:18 | Emergency (ER) | payer MEDICARE ==
[~2021-09-24] VITALS: Ht 182.9 cm; Wt 90.7 kg
[~2021-09-24 07:18] MED LIST changes: -BUPIVACAINE HCL 0.5% INJ 30 ML VIAL INJ ONE; -CEFAZOLIN SOD 1 GM/NS 50ML 50 ML IV ONE; -DEXAMETHASONE SOD PHOS INJ 4 MG/ML VIAL ONE; -EPHEDRINE SULFATE INJ 50 MG/10 ML SYR ONE; -FENTANYL CITRATE/PF 100MCG/2 ML INJ ONE; -LIDOCAINE HCL 2% LOCAL INJ 5 ML SDV VIAL INJ ONE; -MUPIROCIN 2% OINT 22 GM TUBE ONE; -ONDANSETRON HCL INJ 2MG/ML 2ML 2 MG/ML VIAL ONE; -PROPOFOL IV EMULSION 10 MG/ML 20 ML VIAL ONE; -SEVOFLURANE INHAL SOLN 250 ML PEN BTL ONE
[2021-09-24 07:33] LABS: BASOPHILS # (AUTO) 0.1 (0.0-0.1); BASOPHILS % 0.6 % (0.0-1.0); EOSINOPHILS # (AUTO) 0.2 (0.0-0.4); EOSINOPHILS % 1.8 % (0.0-6.0); HEMATOCRIT 43.6 % (38.2-49.6); HEMOGLOBIN 13.6 g/dL (14.0-18.0); LYMPHOCYTES # (AUTO) 2.8 (1.0-3.2); LYMPHOCYTES % 31.7 % (18.0-39.1); MEAN CORPUSCULAR HEMOGLOBIN 29.9 pg (28-32); MEAN CORPUSCULAR HGB CONC 31.2 g/dL (31-35); MEAN CORPUSCULAR VOLUME 95.8 fL (81-99); MONOCYTES # (AUTO) 0.8 (0.2-0.8); MONOCYTES % 9.5 % (4.4-11.3); NEUTROPHILS % 55.9 % (38.7-80.0); PLATELET COUNT 411 x10e3/uL (140-360); RED BLOOD COUNT 4.55 x10e6/uL (4.3-5.7); RED CELL DISTRIBUTION WIDTH 12.6 % (11.7-14.4)
[2021-09-24 07:39] LABS: INR 1.16; PROTHROMBIN TIME 15.6 seconds (11.9-14.5)
[2021-09-24 07:40] LABS: PARTIAL THROMBOPLASTIN TIME 38.7 seconds (23.8-35.5)
[2021-09-24 07:46] LABS: ALBUMIN 3.7 g/dL (3.5-5.0); ALBUMIN/GLOBULIN RATIO 1.1 (0.8-2.0); ANION GAP 7.9 mmol/L (8-16); CALCIUM 8.9 mg/dL (8.4-10.2); CREATININE, SERUM 0.84 mg/dL (0.72-1.25); POTASSIUM 3.9 mmol/L (3.5-5.1)
[2021-09-24 07:53] LABS: CREATINE KINASE MB 1.4 ng/mL (0-5.0)
[2021-09-24] MEDS ORDERED: SODIUM CHLORIDE 0.9% 500ML 500 ML IV ONE (10:30)
[2021-09-24] MEDS ORDERED: SODIUM CHLORIDE 0.9% 500ML 500 ML ONE (10:31)
[2021-09-24 11:18] VITALS: BP 102/67
== END 2021-09-24 11:35 | disposition home or self-care (01) ==
LOC: ER 07:25
DX: R00.0 Tachycardia, unspecified (principal); T44.7X1A Poisoning by beta-adrenoreceptor antagonists, accidental (unintentional), initial encounter; R73.9 Hyperglycemia, unspecified; I10 Essential (primary) hypertension; E78.5 Hyperlipidemia, unspecified; I48.91 Unspecified atrial fibrillation; I25.10 Atherosclerotic heart disease of native coronary artery without angina pectoris; Z20.822 Contact with and (suspected) exposure to COVID-19
CPT/HCPCS: 36415; 71045; 80053; 82550; 82553; 83735; 84484; 85025; 85610; 85730; 93005; 99284; J7040; U0002

== ENCOUNTER 2022-08-03 23:08 | Emergency (ER) | payer MEDICARE, OTHER ==
[~2022-08-03] VITALS: Ht 182.9 cm; Wt 90.7 kg
[2022-08-03] MEDS ORDERED: LIDOCAINE 1% W/EPINEPHRINE 20 ML VIAL INJ ONE (23:30)
[2022-08-03 23:40] LABS: BASOPHILS # (AUTO) 0.1 (0.0-0.1); BASOPHILS % 0.7 % (0.0-1.0); EOSINOPHILS # (AUTO) 0.2 (0.0-0.4); EOSINOPHILS % 1.7 % (0.0-6.0); HEMATOCRIT 43.4 % (38.2-49.6); HEMOGLOBIN 13.3 g/dL (14.0-18.0); LYMPHOCYTES % 22.3 % (18.0-39.1); MEAN CORPUSCULAR HGB CONC 30.6 g/dL (31-35); MONOCYTES % 11.7 % (4.4-11.3); NEUTROPHILS # (AUTO) 5.6 (2.1-6.9); NEUTROPHILS % 63.2 % (38.7-80.0); PLATELET COUNT 215 x10e3/uL (140-360); RED BLOOD COUNT 4.43 x10e6/uL (4.3-5.7); RED CELL DISTRIBUTION WIDTH 14.2 % (11.7-14.4)
[2022-08-03 23:54] LABS: ALBUMIN/GLOBULIN RATIO 1.6 (0.8-2.0); ANION GAP 13.3 mmol/L (8-16); CALCIUM 9.2 mg/dL (8.4-10.2); CREATININE, SERUM 0.93 mg/dL (0.72-1.25); POTASSIUM 4.3 mmol/L (3.5-5.1)
[2022-08-04] MEDS ORDERED: LIDOCAINE HCL 1% LOCAL INJ 20 ML VIAL INJ ONE
[2022-08-04 00:01] LABS: CREATINE KINASE MB 2.2 ng/mL (0-5.0)
[2022-08-04] MEDS ORDERED: LIDOCAINE 1% 10 ML MULTIDOSE VIAL IJ ONE (00:11)
[2022-08-04 04:17] VITALS: BP 130/79
== END 2022-08-04 05:04 | disposition other institution (70) ==
LOC: ER 23:11
DX: S01.01XA Laceration without foreign body of scalp, initial encounter (principal); R55 Syncope and collapse; W01.0XXA Fall on same level from slipping, tripping and stumbling without subsequent striking against object, initial encounter; U07.1 COVID-19; I48.20 Chronic atrial fibrillation, unspecified; R00.8 Other abnormalities of heart beat; I10 Essential (primary) hypertension; E78.5 Hyperlipidemia, unspecified; I25.10 Atherosclerotic heart disease of native coronary artery without angina pectoris
CPT/HCPCS: 12002; 36415; 70450; 71045; 72125; 80053; 82550; 82553; 84484; 85025; 99284; U0002; 93005